=== PATIENT | male | born 1940 | race Caucasian/White ===

== ENCOUNTER 2020-01-29 22:09 | Emergency (ER) | payer MEDICARE, OTHER ==
[~2020-01-29] VITALS: Ht 172.7 cm; Wt 109.0 kg
[2020-01-29] MEDS ORDERED: LIDOcaine 1% W/epiNEPHrine 1:100,000 20ml vial SQ ONE (23:25)
[2020-01-30] MEDS ORDERED: cephalexin 250mg capsule PO ONE (00:05)
[2020-01-30] MEDS ORDERED: sulfamethoxazole/trimethoprim DS (800/160mg) tablet PO ONE (00:05)
[2020-01-30] MEDS ORDERED: CEPH500C5 PO (00:26)
[2020-01-30] MEDS ORDERED: BACDS PO (00:26)
[2020-01-30 00:37] VITALS: BP 153/73
== END 2020-01-30 00:54 | disposition home or self-care (01) ==
LOC: ER 22:09
DX: T81.41XA Infection following a procedure, superficial incisional surgical site, initial encounter (principal); L02.01 Cutaneous abscess of face; Z98.890 Other specified postprocedural states; Z79.2 Long term (current) use of antibiotics; Y69 Unspecified misadventure during surgical and medical care; Y92.89 Other specified places as the place of occurrence of the external cause
CPT/HCPCS: 10060; 99283